=== PATIENT | female | born 1995 | race Two or more races ===

== ENCOUNTER 2018-11-27 22:07 | Emergency (ER) | payer MEDICAID ==
[~2018-11-27] VITALS: Ht 167.6 cm; Wt 81.6 kg
[2018-11-27] MEDS ORDERED: FAMOTIDINE 20 MG TABLET PO ONE (23:45)
[2018-11-27] MEDS ORDERED: predniSONE 10 MG TABLET PO ONE (23:45)
[2018-11-27] MEDS ORDERED: EPINEPHRINE 1 MG/1 ML AMP SQ ONE (23:45)
[2018-11-27] MEDS ORDERED: diphenhydrAMINE 50 MG CAPSULE PO ONE (23:45)
[2018-11-27] MEDS ORDERED: diphenhydrAMINE 50 MG CAPSULE ONE (23:51)
[2018-11-27] MEDS ORDERED: EPINEPHRINE 1 MG/1 ML AMP ONE (23:51)
[2018-11-27] MEDS ORDERED: predniSONE 50 MG TABLET ONE (23:51)
[2018-11-27] MEDS ORDERED: predniSONE 10 MG TABLET ONE (23:51)
[2018-11-27] MEDS ORDERED: FAMOTIDINE 20 MG TABLET ONE (23:51)
--- NOTE | 2018-11-28 00:47 | NUR ---
DCPatient discharged to home in stable conditon. Written and verbal after care instructions given. Patient verbalizes understanding of instructions. AMBULATORY W/ STABLE GAIT ALL BELONGINGS W/ PT
[2018-11-28 00:50] VITALS: BP 128/75
[2018-11-28] MEDS ORDERED: DIPH25CA83 PO (18:40)
== END 2018-11-28 00:40 | disposition home or self-care (01) ==
LOC: ER 22:11
DX: L50.9 Urticaria, unspecified (principal)
CPT/HCPCS: 96372; 99284; J0171; J7512 ×2; Q0163; A4663

== ENCOUNTER 2018-11-28 17:36 | Emergency (ER) | payer MEDICAID ==
[~2018-11-28] VITALS: Ht 167.6 cm; Wt 81.6 kg
--- NOTE | 2018-11-28 18:30 | NUR ---
PT RECEIVED C/O ACUTE URTICARIA +GENERALIZED RASHES ON B/L UPPER AND LOWER EXTREMITIES +HIVES DENIES WHEEZING, DENIES SOB, DENIES COUGHING ABLE TO SPEAK CLEAR AND COMPLETE SENTENCES DENIES RECENT TRAVEL
[2018-11-28] MEDS ORDERED: DIPH25CA83 PO (18:40)
[2018-11-28] MEDS ORDERED: diphenhydrAMINE 50 MG/1 ML VIAL IM ONE (21:00)
[2018-11-28] MEDS ORDERED: predniSONE 10 MG TABLET PO ONE (21:00)
[2018-11-28] MEDS ORDERED: EPINEPHRINE 1 MG/1 ML AMP SQ ONE (21:00)
[2018-11-28] MEDS ORDERED: EPINEPHRINE 1 MG/1 ML AMP ONE (21:08)
[2018-11-28] MEDS ORDERED: predniSONE 10 MG TABLET ONE (21:08)
[2018-11-28] MEDS ORDERED: diphenhydrAMINE 50 MG/1 ML VIAL ONE (21:08)
--- NOTE | 2018-11-28 21:30 | NUR ---
Patient discharged to home in stable conditon. Written and verbal after care instructions given. Patient verbalizes understanding of instructions. ALL BELONGINGS W/ PT AMBULATORY W/ STABLE GAIT
[2018-11-28 23:03] VITALS: BP 125/82
== END 2018-11-28 21:30 | disposition home or self-care (01) ==
LOC: ER 17:38
DX: L50.9 Urticaria, unspecified (principal); Z79.899 Other long term (current) drug therapy
CPT/HCPCS: 96372 ×2; 99283; J0171; J1200; J7512; A4663

== ENCOUNTER 2020-12-24 09:39 | Emergency (ER) | payer BC, MEDICAID ==
[~2020-12-24] VITALS: Ht 167.6 cm; Wt 87.1 kg
[~2020-12-24 09:39] MED LIST: DIPH25CA83 PO
--- NOTE | 2020-12-24 10:00 | NUR ---
MD at bedside for assessment, patient complaints of lump in axilla area after covid vaccine
--- NOTE | 2020-12-24 10:14 | NUR ---
Patient discharged to home in stable condition. Patient gave verbal conscent. Written and verbal after care instructions given. Patient verbalizes understanding of instructions. Stressed follow up or return to ER for worsening s/s.
[2020-12-24 10:23] VITALS: BP 140/90
== END 2020-12-24 10:20 | disposition home or self-care (01) ==
LOC: ER 09:39
DX: R50.83 Postvaccination fever (principal); T50.B95A Adverse effect of other viral vaccines, initial encounter; Y92.89 Other specified places as the place of occurrence of the external cause; R59.0 Localized enlarged lymph nodes; M79.10 Myalgia, unspecified site
CPT/HCPCS: A4663